=== PATIENT | male | born 1985 | race Caucasian/White ===

== ENCOUNTER 2018-09-15 18:58 | Emergency (ER) | payer OTHER ==
[2018-09-15 19:02] VITALS: BP 142/93
[2018-09-15] MEDS ORDERED: IBUPROFEN 600 MG TAB PO ONE ×2 (19:18)
--- NOTE | 2018-09-15 19:40 | EDPHY ---
H & P Time Seen by Provider: 09/15/18 19:06 HPI/ROS: CHIEF COMPLAINT: Right lateral ankle pain HISTORY OF PRESENT ILLNESS: 33-year-old male via private vehicle complaining of acute right lateral ankle pain after he rolled his foot playing softball today. He is unable to bear weight. No paresthesia. No sensory or motor deficit. PHYSICAL EXAM (Prior to examination, patient consented to physical exam, hands were washed and my usual and customary physical exam procedures followed) 1) GENERAL: Well-developed, well-nourished, alert and oriented. Appears to be in no acute distress. 2) HEAD: Normocephalic 3) HEENT: Pupils equal, round, reactive to light bilaterally. 4) LUNGS: Breathing comfortably. 5) MUSCULOSKELETAL: Soft tissue swelling to the lateral ankle with associated tenderness. No tenting of tissue. proximal tibia and fibula nontender .5th MT nontender negative Aguila test, compartments soft 6) SKIN: Intact 7) VASCULAR: DP,PT pulses and cap refill present and brisk DIFFERENTIAL DIAGNOSIS: in no particular order including but not limited to fracture, sprain, compartment syndrome * Procedure: Crutches indications for crutch use discussed with patient. Patient fitted for crutches by ER staff. Observed ambulating with crutches. I think the patient has the capacity to safely use crutches. Usual and customary crutch walking precautions provided Procedure: Splint A jasmin boot splint was applied by ER two way radio technician. After application of the splint I returned and re-examined the patient. The splint was adequately immobilizing the joint and distal to the splint the patient's circulation and sensation were intact. Patient shows no signs of compartment syndrome. Was given orthopedic precautions. Smoking Status: Never smoked Constitutional: Initial Vital Signs Temperature (C) 37.3 C 09/15/18 19:00 Heart Rate 118 H 09/15/18 19:00 Respiratory Rate 16 09/15/18 19:00 Blood Pressure 142/93 H 09/15/18 19:00 O2 Sat (%) 94 09/15/18 19:00 O2 Delivery Mode Room Air Allergies/Adverse Reactions: No Known Allergies Allergy (Unverified 09/15/18 19:02) Home Medications: Medication Instructions Recorded NK [No Known Home Meds] 09/15/18 MDM/Departure - MDM Imaging Results: Imaging Impressions Ankle X-Ray 09/15/18 19:07 Impression: 1. Diffuse soft tissue swelling. 2. Avulsion fracture from the medial talus near the tibiotalar ligament region. Images reviewed myself Medications Given: Discontinued Medications Ibuprofen (Motrin) 600 mg PO EDNOW ONE Stop: 09/15/18 19:19 Last Admin: 09/15/18 19:19 Dose: 600 mg ED Course/Re-evaluation: Re-evaluation with serial examinations. Discussed the imaging. There is a an avulsion fracture. This is a closed fracture. Neurovascular intact. Soft compartments no evidence compartment syndrome. I think he can be discharged home safely. Recommend follow up with Orthopedics and given this referral information. Patient feels comfortable being discharged. All questions and concerns addressed by myself. Patient given my usual and customary discharge precautions and instructions regarding their clinical impression. Care of patient under supervision of secondary supervising physician Dr Zavala. - Depart Disposition: Home, Routine, Self-Care Clinical Impression: Right ankle sprain Qualifiers: Encounter type: initial encounter Involved ligament of ankle: unspecified ligament Qualified Code(s): S93.401A - Sprain of unspecified ligament of right ankle, initial encounter Condition: Good Instructions: Ankle Sprain (ED) Additional Instructions: Return to the ER immediately if you experience discoloration, have worsening pain, numbness, tingling, or any other symptoms that concern you. If you received x-rays in the emergency department today, be advised, that ligamentous , tendon, muscular, and other non-bony injury cannot be fully ruled out. Try to keep your affected extremity elevated above the level of your chest, and keep cold packs on the affected area, for the next 48 hours. Adult Pain & Fever Control: We recommend Acetaminophen (Tylenol) and Ibuprofen (Motrin,Advil) for pain and fever control. When fever is high or pain severe, both drugs can be used at the same time, but at different intervals. Please note the time differences. Your dose is: Acetaminophen 650mg every 4 to 6 hours Ibuprofen 600mg every 6 hours with food OR Note: do not take Acetaminophen with Hydrocodone (Vicodin, Lortab) or Oycodone (Percocet). These medications also contain Acetaminophen. No more than 3000mg of Acetaminophen should be taken in 24 hours (for an adult). Referrals: Mikey Hunter MD [Medical Doctor] - 2-3 days, call for appt.
== END 2018-09-15 19:53 | disposition home or self-care (01) ==
DX: S93.401A Sprain of unspecified ligament of right ankle, initial encounter (principal); X50.1XXA Overexertion from prolonged static or awkward postures, initial encounter; Y93.64 Activity, baseball
CPT/HCPCS: L4386